=== PATIENT | female | born 1955 | race Caucasian/White ===

== ENCOUNTER 2018-10-19 10:19 | Emergency (ER) | payer BC ==
[2018-10-19 11:05] LABS: BASOPHILS % (AUTO) 0.4 %; EOSINOPHILS # (AUTO) 0.3 10^3/uL (0.0-0.7); EOSINOPHILS % (AUTO) 2.3 %; HGB - HEMOGLOBIN 12.9 g/dL (12.0-16.0); LYMPHOCYTES # (AUTO) 1.5 10^3/uL (1.5-3.5); LYMPHOCYTES % (AUTO) 12.2 %; MEAN CORPUSCULAR HEMOGLOBIN 28.3 pg (27.0-31.0); MEAN CORPUSCULAR HGB CONC 32.9 g/dL (32.0-36.0); MEAN PLATELET VOLUME 8.3 fL (7.9-10.8); MONOCYTES # (AUTO) 0.4 10^3/uL (0.0-1.0); MONOCYTES % (AUTO) 3.4 %; NEUTROPHILS % (AUTO) 81.7 %; PLT - PLATELET COUNT 338 10^3/uL (130-450); RED BLOOD COUNT 4.55 10^6/uL (4.20-5.40); RED CELL DISTRIBUTION WIDTH 15.3 % (12.0-15.0); WHITE BLOOD COUNT 12.2 x10^3/uL (4.8-10.8)
[2018-10-19] MEDS ORDERED: ONDANSETRON 4 MG/2 ML VIAL IVP STA ×2 (11:08→12:22)
[2018-10-19] MEDS ORDERED: SODIUM CHLORIDE 0.9% 1,000 ML IV ONE (11:08)
[2018-10-19 11:15] LABS: ALBUMIN/GLOBULIN RATIO 1.3 (1.0-2.2); BILIRUBIN,TOTAL 0.5 mg/dL (0.2-1.0); CALCIUM 8.9 mg/dL (8.5-10.3); TOTAL PROTEIN 7.2 g/dL (6.7-8.2)
[2018-10-19] MEDS ORDERED: MAG HYDROX/AL HYDROX/SIMETH 30 ML UDC PO STA (11:37)
[2018-10-19] MEDS ORDERED: SUCRALFATE 1 GM/10 ML UDC PO STA (11:37)
[2018-10-19] MEDS ORDERED: LIDOCAINE VISCOUS 2% 15 ML UDC MM STA (11:37)
[2018-10-19] MEDS ORDERED: PHENobarb/HYOSCY/ATROPINE/SCOP 5 ML UDC PO STA (11:37)
[2018-10-19 12:32] VITALS: BP 103/74
--- NOTE | 2018-10-19 12:43 | ED Physician Documentation ---
History of Present Illness - Stated complaint Stated Complaint: VOMITING/ABD PX - Chief complaint Chief Complaint: Abd Pain - History obtained from History obtained from: Patient - History of Present Illness Timing: Today Pain level max: 4 Pain level now: 4 Improved by: nothing Worsened by: eating - Additonal information Additional information: 62-year-old female flew in from [place] last night. Started vomiting this morning. History of hiatal hernia. Had her gallbladder removed last year. No fevers. No diarrhea. Review of Systems Constitutional: denies: Fever, Chills Throat: denies: Sore throat Cardiac: denies: Chest pain / pressure Respiratory: denies: Cough GI: denies: Hematemesis, Bloody / black stool Skin: denies: Rash Musculoskeletal: denies: Neck pain, Back pain Neurologic: denies: Headache PD PAST MEDICAL HISTORY - Past Medical History Respiratory: Asthma Endocrine/Autoimmune: HyPOthyroidism GI: GERD - Past Surgical History General: Cholecystectomy, Appendectomy /[employer]IAN: Hysterectomy, Oophrectomy HEENT: Tonsil/Adenoidectomy - Present Medications Home Medications: Ambulatory Orders Medication Instructions Recorded Confirmed Bupropion HCl [Wellbutrin Xl] 300 mg PO DAILY 10/19/18 10/19/18 Estradiol 0.5 mg PO 10/19/18 Famotidine [Pepcid] 20 mg PO BID #60 tablet 10/19/18 Levothyroxine [Synthroid] 88 mcg PO QDAC 10/19/18 10/19/18 Ondansetron Odt [Zofran] 4 mg TL Q6H PRN #10 tablet 10/19/18 Pantoprazole [Protonix] 40 mg 10/19/18 Pramipexole [Mirapex] 0.5 mg PO TID 10/19/18 10/19/18 Sucralfate [Carafate] 1 gm PO ACHS #60 tablet 10/19/18 Topiramate [Topamax] 100 mg PO DAILY 10/19/18 10/19/18 - Allergies Allergies/Adverse Reactions: Allergies Allergy/AdvReac Type Severity Reaction Status Date / Time ceftriaxone [From Rocephin] Allergy Anaphylaxis Verified 10/19/18 10:30 Penicillins Allergy Hives Verified 10/19/18 10:30 - Social History Does the pt smoke?: No Smoking Status: Never smoker Does the pt drink ETOH?: No - Immunizations Immunizations are current?: Yes PD ED PE NORMAL - Vitals Vital signs reviewed: Yes - General General: Alert and oriented X 3, No acute distress, Well developed/nourished - HEENT HEENT: Moist mucous membranes - Neck Neck: Supple, no meningeal sign - Cardiac Cardiac: RRR - Respiratory Respiratory: No respiratory distress, Clear bilaterally - Abdomen Abdomen: Soft, Non tender, Non distended - Derm Derm: Warm and dry - Extremities Extremities: No edema - Neuro Neuro: Alert and oriented X 3 - Psych Psych: Normal mood, Normal affect Results - Vitals Vitals: Vital Signs - 24 hr 10/19/18 10/19/18 10:27 12:31 Temperature 36.2 C L 36.4 C L Heart Rate 67 50 L Respiratory 20 Rate Blood Pressure 112/80 103/74 O2 Saturation 96 99 Oxygen O2 Source Room air - Labs Labs: Laboratory Tests 10/19/18 10/19/18 10:58 10:58 WBC 12.2 H RBC 4.55 Hgb 12.9 Hct 39.1 MCV 86.0 MCH 28.3 MCHC 32.9 RDW 15.3 H Plt Count 338 MPV 8.3 Neut # (Auto) 10.0 H Lymph # (Auto) 1.5 [place] # (Auto) 0.4 Eos # (Auto) 0.3 Baso # (Auto) 0.0 Absolute Nucleated RBC 0.00 Nucleated RBC % 0.0 Sodium 140 Potassium 3.6 Chloride 107 Carbon Dioxide 22 Anion Gap 11.0 BUN 29 H Creatinine 1.0 Estimated GFR (MDRD) 57 L Glucose 110 H Calcium 8.9 Total Bilirubin 0.5 AST 25 ALT 26 Alkaline Phosphatase 49 Total Protein 7.2 Albumin 4.0 Globulin 3.2 Albumin/Globulin Ratio 1.3 Lipase 36 PD MEDICAL DECISION MAKING - ED course Complexity details: reviewed results, re-evaluated patient, considered differential, d/w patient ED course: 62-year-old female with what appears to be a viral gastroenteritis, but may be gastritis from her hiatal hernia as well. GI cocktail helped. Zofran resolve the vomiting. Given IV fluids as well. Tolerating p.o. without difficulty. Will prescribe Zofran and an H2 sandra for home. She will follow-up with her doctor for further care. She will return if she worsens. Abdomen is soft, nontender nondistended on serial exam. Patient counseled regarding signs and symptoms for which I believe and urgent re-evaluation would be necessary. Patient with good understanding of and agreement to plan and is comfortable going home at this time This document was made in part using voice recognition software. While efforts are made to proofread this document, sound alike and grammatical errors may occ ur. Departure - Departure Disposition: 01 Home, Self Care Clinical Impression: Vomiting Qualifiers: Vomiting type: unspecified Vomiting Intractability: non-intractable Nausea presence: with nausea Qualified Code(s): R11.2 - Nausea with vomiting, unspecified Condition: Good Instructions: ED Nausea Vomiting Follow-Up: your,doctor in 1 week if not better [Other] Prescriptions: Famotidine [Pepcid] 20 mg PO BID #60 tablet Ondansetron Odt [Zofran] 4 mg TL Q6H PRN #10 tablet PRN Reason: Nausea / Vomiting Sucralfate [Carafate] 1 gm PO ACHS #60 tablet Comments: Return if you worsen. Drink plenty of fluids and rest. Follow-up with your doctor for further care. Discharge Date/Time: 10/19/18 12:54
== END 2018-10-19 12:54 | disposition home or self-care (01) ==
LOC: ED 10:19
DX: R11.2 Nausea with vomiting, unspecified (principal); K21.9 Gastro-esophageal reflux disease without esophagitis; K44.9 Diaphragmatic hernia without obstruction or gangrene; Z90.49 Acquired absence of other specified parts of digestive tract; E03.9 Hypothyroidism, unspecified
CPT/HCPCS: 36415; 80053; 83690; 85025; 96361; 96374; 96376; 99283; A9270